=== PATIENT | female | born 1995 | race African-American/Black ===

== ENCOUNTER 2021-08-16 14:11 | Emergency (ER) | payer BC, MEDICAID, SELFPAY ==
--- NOTE | 2021-08-16 14:23 | ED.SKABFB ---
HPI - Skin/Abscess/Foreign Bdy General Chief complaint: Skin/Abscess/Foreign Body Stated complaint: Hand discoloration Time Seen by Provider: 08/16/21 14:23 Source: patient, RN notes reviewed and old records reviewed Mode of arrival: ambulatory Limitations: no limitations History of Present Illness HPI narrative: 25-year-old female presents to the [facility] with concerns of palms of bilateral hands that are orange for the last 1 to 2 weeks. Fingertips are not orange. No other body part is orange. Callahan was able to be partially removed with alcohol pads. No other symptoms. Full range of motion. Capillary refill under 2 seconds. complaint: rash Related Data Home Medications Medication Instructions Recorded Confirmed No Home Medications 08/16/21 08/16/21 Allergies Allergy/AdvReac Type Severity Reaction Status Date / Time No Known Allergies Allergy Unverified 05/27/17 17:02 Review of Systems Review of Systems: All systems reviewed & are unremarkable except as noted in HPI and below Constitutional: Constitutional: Reports no additional constitutional complaints, Denies chills, Denies fever(s), Denies headache(s) and Denies weakness Eyes: Eyes: Reports no additional eye complaints and Denies change in vision ENT: Reports system reviewed and no additional complaints, except as documented, Denies dysphagia, Denies dizziness, Denies headache(s), Denies nasal congestion and Denies sore throat Cardiovascular: Cardiovascular: Reports no additional cardiovascular complaints, Denies chest pain, Denies syncope and Denies dyspnea Respiratory: Respiratory: Reports no additional respiratory complaints, Denies chest congestion, Denies cough, Denies dyspnea and Denies wheezing Gastrointestinal: Gastrointestinal: Denies dysphagia Musculoskeletal: Musculoskeletal: Denies numbness Integumentary/Breasts: Skin/Breast: Reports as per HPI Comments: Callahan palms of her hands bilaterally Neurologic: Reports system reviewed and no additional complaints, except as documented, Denies dizziness, Denies syncope, Denies headache(s), Denies focal weakness, Denies numbness and Denies weakness Psychiatric: Psychiatric: Reports no additional psychiatric complaints Allergic/Immunologic: Allergic/Immunologic: Reports no additional allergic/immunologic complaints and Denies wheezing PMFSH Past Medical History Medical History (Updated 08/16/21 @ 16:01 by Jenna Robledo APRN) No significant medical problems Surgical History Surgical History (Updated 08/16/21 @ 16:01 by Jenna Robledo APRN) No pertinent past surgical history Comments At the time of my signature, I reviewed and agree with the nursing past medical, surgical, social, and family history. There is no relevant family history pertinent to the patient complaint. Exam Const: General: healthy appearing, no acute distress and alert Nutritional Appearance: well nourished Orientation/consciousness: patient oriented x3 Limitations: no limitations HENMT: Head: normal to inspection Ears: external ears normal Mouth: Yes Normal oral and palatal mucosa present Eyes: Conjunctivae: conjunctivae normal Pupils: Equal, round and reactive pupils present Neck: Neck: normal visual inspection, no lymphadenopathy and no meningeal signs Chest: Chest palpation & inspection: normal inspection of the chest Resp: Effort & Inspection: normal respiratory effort Auscultation: clear to auscultation bilaterally Cardio: Rate: regular rate Rhythm: regular rhythm : General: Yes no CVA tenderness Back/Spine/Pelvis: Back: no CVA tenderness Skin: General skin exam: normal color Rashes: rashes noted Other: Only discoloration noted just to the palms of the hands not the fingers. Neuro: General: patient oriented x3, moves all extremities, no meningeal signs and no focal motor deficits Cranial nerves: Yes Equal, round and reactive pupils present Speech: normal speech Gait exam (Neuro):
[2021-08-16 14:24] VITALS: BP 118/68; PULSE 75; RESP 20; TEMP 36.8; O2SAT 100
== END 2021-08-16 14:33 | disposition home or self-care (01) ==
PROVIDERS: Emergency Provider Nurse Practitioner
DX: Z71.1 Person with feared health complaint in whom no diagnosis is made (principal)
CPT/HCPCS: 99211; G0463

== ENCOUNTER 2022-04-29 07:41 | Inpatient (IN) | payer BC, MEDICAID, SELFPAY ==
[2022-04-29] VITALS (11 sets, daily range): BP systolic 96–128; BP diastolic 47–69; PULSE 90–141; RESP 18–22; TEMP 36.8–39.6; O2SAT 95–100
--- NOTE | ~2022-04-29 | XR_ITS ---
EXAMINATION: XR chest 1V portable DATE: 04/29/2022 08:08 INDICATION: Cough. Shortness of breath. TECHNIQUE: A single frontal view of the chest was obtained. COMPARISON: None. FINDINGS: The chest demonstrates clear lungs without pneumonia, pleural effusion, or pneumothorax. Th e heart size is normal. IMPRESSION: 1. No acute cardiopulmonary disease. Reviewed, dictated and finalized at location A. REMENT OFFICER
--- NOTE | 2022-04-29 08:04 | ED.GENADULT ---
HPI - General Adult General Chief complaint: Upper Respiratory Infection Stated complaint: SOB Source: RN notes reviewed History of Present Illness HPI narrative: Patient presents emergency room from home via EMS for cough. Patient states that symptoms began yesterday she states that she began to feel generally achy and has a cough is productive of clear sputum states is associated with rhinorrhea and a sore throat patient states that she does have a son at home who recently tested positive for influenza A. She states that she feels achy in all of her joints she states she did take ibuprofen this morning she denies any chest pain abdominal pain vomiting or diarrhea states she does have some nausea Related Data Home Medications Medication Instructions Recorded Confirmed No Home Medications 08/16/21 04/29/22 Allergies Allergy/AdvReac Type Severity Reaction Status Date / Time No Known Allergies Allergy Unverified 04/29/22 07:53 Review of Systems Review of Systems: Gen.: Denies fevers or chills ENT: Reports rhinorrhea and sore throat Respiratory: See HPI CV: Denies chest pain or palpitations GI: Denies abdominal pain emesis or diarrhea. Reports nausea Musculoskeletal: Denies back pain or muscle pain Neuro: Denies numbness, tingling, weakness or focal weakness Skin: Denies rash Except as documented, all other systems reviewed and negative PMFSH Past Medical History Medical History No significant medical problems Surgical History Surgical History (Updated 08/16/21 @ 16:01 by Jenna Robledo APRN) No pertinent past surgical history Social History Social History (Updated 04/29/22 @ 08:05 by Jason Edward DO) Smoking status: Never smoker Alcohol intake: never Substance use: never Has the Lack of Transportation Kept You From Medical Appointments or From Getting Medications?: No Within the Past 12 Months, Were You Worried Whether Your Food Would Run Out Before You Got Money to Buy More?: Never True What is Your Housing Situation Today?: I Have Housing Are You Worried That in the Next 2 Months, You May Not Have Your Own Housing to Live In?: No Do You Have Trouble Paying Your Heating Or Electricity Bill?: No Do You Have Trouble Paying For Medicines?: No Are You Currently Unemployed and Looking for Work?: No Highest Level of Education Completed: High School Diploma/GED Do You Have Trouble With Childcare or the Care of a Family Member?: No Spiritual care concerns: No Exam Narrative: APPEARANCE: No acute distress, nontoxic, resting in bed EYES: EOMI HEENT: Normocephalic, atraumatic, bilateral turbinates boggy erythema the posterior pharynx and tonsils no exudate uvula midline RESPIRATORY: No respiratory distress Clear to auscultation bilaterally with no rhonchi wheezing or rales. CARDIOVASCULAR: Tachycardic and regular without murmurs rubs or gallops. ABDOMINAL: Soft, nontender, nondistended, no rebound or guarding MUSCULOSKELETAl: Moves all extremities. No clubbing, cyanosis or edema. NEURO: Awake and alert. Following commands, speech normal, no focal deficits SKIN:: Warm, dry. No rashes lesions or abrasions PSYCHIATRIC: Normal affect/mood, Course Course Emergency Course: Patient remained stable in the ER but continues to have elevated heart rate. 2 L of fluid given Discussed Dr. Siu presentation work-up request 3 L fluid be given reevaluate Patient continues to have sinus tachycardia following third liter of fluid. Reviewed old records patient had a heart rate of 75 the last ED presentation will admit at this time Discussed with HUMBERTO Medrano to Dr. Nogueira agrees with admission request TSH be added Discussed with patient and family results of workup and diagnosis. Discussed need for admission. Patient and family understand and agree to current treatment plan Vital Signs Vital signs: Vital Signs Temperature 100.1
[2022-04-29] MEDS: SODIUM CHLORIDE 0.9% IV 1,000 ML 999 ML IV CONT ×3 (08:09→11:34)
[2022-04-29] MEDS: FAMOTIDINE 20 MG/2 ML VIAL IV PUSH (08:10)
[2022-04-29 08:46] LABS: Influenza A QL RT-PCR Positive (Negative); Influenza B QL RT-PCR Negative (Negative); SARS-CoV-2 RNA PCR Negative
[2022-04-29 08:57] LABS: Basophils Percent Auto 0.3 % (0.2-1.2); Eosinophils Percent Auto 0.4 % (0-4.4); Hematocrit 32.6 % (37.0-47.0); Hemoglobin 10.7 g/dL (12.0-15.0); Immature Granulocyte Absolute 0.07 K/mm3 (0.00-0.031); Immature Granulocyte Percent A 0.8 % (0-0.5); Lymphocytes Absolute Auto 0.33 K/mm3 (0.9-3.2); Lymphocytes Percent Auto 3.7 % (18.3-44.2); Mean Corpuscular HGB Conc 32.8 g/dl (32-36); Mean Corpuscular Hemoglobin 29.8 pg (26-34); Mean Corpuscular Volume 90.8 fl (80-100); Mean Platelet Volume 10.4 fl (7.4-10.4); Monocytes Absolute Auto 0.8 K/mm3 (0.1-0.6); Monocytes Percent Auto 8.7 % (2.6-8.5); Neutrophils Absolute Auto 7.8 K/mm3 (1.3-6.7); Neutrophils Percent Auto 86.1 % (45.5-73.1); Platelet Count Result 288 k/mm3 (150-375); Red Blood Count 3.59 M/mm3 (4.2-5.4); Red Cell Distribution Width 13.1 % (11.5-14.5)
[2022-04-29 09:09] LABS: Alanine Aminotransferase 14 U/L (6-35); Albumin Level 3.6 g/dL (3.5-5.1); Alkaline Phosphatase 59 U/L (38-126); Anion Gap 8 mmol/L (8-16); Aspartate Amino Transferase 18 U/L (14-36); Bilirubin,Total 0.4 mg/dL (0.2-1.3); Blood Urea Nitrogen 12 mg/dL (7-17); Carbon Dioxide 18 mmol/L (22-30); Chloride 110 mmol/L (98-107); Estimated Glomerular Filt Rate > 60; Glucose 102 mg/dL (65-110); Potassium 3.7 mmol/L (3.4-5.0); Sodium 136 mmol/L (137-145)
--- NOTE | 2022-04-29 10:00 | ECG_ITS ---
Measurements Intervals [place] Rate: 125 P: 57 CA: 170 QRS: 61 QRSD: 78 T: 47 QT: 336 QTc: 484 Interpretive Statements SINUS TACHYCARDIA EARLY PRECORDIAL R/S TRANSITION BORDERLINE ST-T WAVE ABNORMALITY- ANT/INF LEADS ABNORMAL ECG NO PREVIOUS ECG AVAILABLE FOR COMPARISON Electronically Signed On 04-29-2022 10:30:16 FISH HATCHERY ASSISTANT by Vamshi Parsons D.O.
[2022-04-29 11:09] LABS: D Dimer 0.35 ug/mL (<0.48)
[2022-04-29] MEDS: OSELTAMIVIR PHOSPHATE 75 MG CAPSULE PO (13:18)
[2022-04-29] MEDS: IBUPROFEN 600 MG TABLET PO (13:18)
[2022-04-29] MEDS: SODIUM CHLORIDE 0.9% IV 1,000 ML 80 ML IV CONT (14:23)
[2022-04-29 14:45] LABS: Lactic Acid Reflex 1.4 mmol/L (0.7-2.0)
[2022-04-29 14:53] LABS: Anion Gap 10 mmol/L (8-16); Blood Urea Nitrogen 9 mg/dL (7-17); Calcium 7.3 mg/dL (8.4-10.2); Carbon Dioxide 18 mmol/L (22-30); Chloride 112 mmol/L (98-107); Estimated Glomerular Filt Rate > 60; Glucose 97 mg/dL (65-110); Potassium 3.6 mmol/L (3.4-5.0); Sodium 140 mmol/L (137-145)
[2022-04-29 15:57] LABS: Thyroid Stimulating Hormone 0.352 uIU/mL (0.465-4.680)
--- NOTE | 2022-04-29 19:30 | PM.IMHP ---
H&P: HPI History of Present Illness Date/Time: 04/29/22 19:30 Chief Complaint: Cough and shortness of breath. Narrative: This is a 26-year-old female with history of anxiety who presented to the ED from home for evaluation of cough and shortness of breath. Her son was recently diagnosed with the flu and she started to have similar symptoms yesterday to include body aches, cough productive of clear sputum, rhinorrhea, and sore throat. This morning she was feeling a bit short of breath and she came in for evaluation. Her chest x-ray was clear and labs did not show any significant abnormalities aside from mild hyponatremia and a mild normocytic anemia. D-dimer was ordered due to persistent sinus tachycardia in the 120s to 140s and that was negative. She was aggressively hydrated and she was given Tylenol for her temperature of nearly 102?, and despite these measures she remains tachycardic and she is being admitted overnight for evaluation. Currently she is resting comfortably and she has no specific complaints. 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 She specifically denies syncope, near syncope, chest pain, pleuritic pain, palpitations, nausea, vomiting, and sweats. She has no history of thyroid disease or venous thromboembolism. She denies significant caffeine use. No illicit substance use. Review of Systems Review of Systems: Twelve systems were reviewed and are negative except for as per HPI. [facility] Past Medical History Medical History No significant medical problems Surgical History Surgical History No pertinent past surgical history Family History Family History (Updated 04/29/22 @ 20:44 by Marcela Hernandez PA-C) Other Family history non-contributory Social History Social History (Updated 04/29/22 @ 20:45 by Marcela Hernandez PA-C) Social History: Surrogate medical decision maker: Rama Richter, mother. Code status: Full code. Smoking status: Never smoker Alcohol intake: never Substance use: never Has the Lack of Transportation Kept You From Medical Appointments or From Getting Medications?: No Within the Past 12 Months, Were You Worried Whether Your Food Would Run Out Before You Got Money to Buy More?: Never True What is Your Housing Situation Today?: I Have Housing Are You Worried That in the Next 2 Months, You May Not Have Your Own Housing to Live In?: No Do You Have Trouble Paying Your Heating Or Electricity Bill?: No Do You Have Trouble Paying For Medicines?: No Are You Currently Unemployed and Looking for Work?: No Highest Level of Education Completed: High School Diploma/GED Do You Have Trouble With Childcare or the Care of a Family Member?: No Spiritual care concerns: No Meds Home Medications and Allergies Home Medications Medication Instructions Recorded Confirmed Type No Home Medications 08/16/21 04/29/22 History Allergies Allergy/AdvReac Type Severity Reaction Status Date / Time No Known Allergies Allergy Unverified 04/29/22 07:53 Vital Signs Vital Signs - 24 hr 04/29/22 07:41 04/29/22 07:51 04/29/22 09:18 Temperature 100.1 F H Pulse Rate 141 H 122 H Respiratory Rate 22 H 18 Blood Pressure 107/61 111/48 L Pulse Oximetry 100 100 99 Oxygen Delivery Room Air Room Air 04/29/22 09:51 04/29/22 10:18 04/29/22 10:52 Temperature 98.2 F Pulse Rate 129 H 124 H Respiratory Rate 18 18 Blood Pressure 96/61 L 104/57 L Pulse Oximetry 100 100 Oxygen Delivery Exam Narrative: General: Mildly ill-appearing female lying on her left side in bed in no distress. Weight: 60.1 kilograms. BMI: 32.5. HEENT: PERRL, EOMI. Sclera anicteric. Oral mucosa moist. Tacky mucous membranes. Oropharynx mildl
[2022-04-29] MEDS: ACETAMINOPHEN 325 MG TABLET 650 MG PO (21:02)
[2022-04-29] MEDS: ONDANSETRON INJ 4 MG/2 ML VIAL IV PUSH (21:08)
[2022-04-30] VITALS (15 sets, daily range): BP systolic 110–137; BP diastolic 66–76; PULSE 96–127; RESP 18–20; TEMP 36.9–39.6; O2SAT 96–100
[2022-04-30] MEDS: BENZOCAINE/MENTHOL (*BKC) 18 EA LOZENGE 1 LOZENGE PO ×2 (04:51→09:21)
[2022-04-30 06:36] LABS: Basophils Percent Auto 0.1 % (0.2-1.2); Hemoglobin 10.4 g/dL (12.0-15.0); Immature Granulocyte Absolute 0.11 K/mm3 (0.00-0.031); Immature Granulocyte Percent A 0.8 % (0-0.5); Lymphocytes Absolute Auto 0.87 K/mm3 (0.9-3.2); Lymphocytes Percent Auto 6.2 % (18.3-44.2); Mean Corpuscular HGB Conc 32.5 g/dl (32-36); Mean Corpuscular Hemoglobin 29.5 pg (26-34); Mean Corpuscular Volume 90.9 fl (80-100); Mean Platelet Volume 10.7 fl (7.4-10.4); Monocytes Absolute Auto 1.1 K/mm3 (0.1-0.6); Monocytes Percent Auto 7.6 % (2.6-8.5); Neutrophils Absolute Auto 12.1 K/mm3 (1.3-6.7); Neutrophils Percent Auto 85.3 % (45.5-73.1); Platelet Count Result 235 k/mm3 (150-375); Red Blood Count 3.52 M/mm3 (4.2-5.4); Red Cell Distribution Width 13.2 % (11.5-14.5); White Blood Count 14.1 K/mm3 (4.5-10.0)
[2022-04-30 06:46] LABS: Alanine Aminotransferase 16 U/L (6-35); Albumin Level 3.5 g/dL (3.5-5.1); Alkaline Phosphatase 58 U/L (38-126); Anion Gap 11 mmol/L (8-16); Aspartate Amino Transferase 29 U/L (14-36); Bilirubin,Total 0.3 mg/dL (0.2-1.3); Blood Urea Nitrogen 6 mg/dL (7-17); Calcium 7.9 mg/dL (8.4-10.2); Carbon Dioxide 20 mmol/L (22-30); Chloride 106 mmol/L (98-107); Estimated Glomerular Filt Rate > 60; Glucose 101 mg/dL (65-110); Magnesium 1.6 mg/dL (1.6-2.3); Potassium 3.3 mmol/L (3.4-5.0); Sodium 137 mmol/L (137-145)
[2022-04-30 07:20] LABS: Free T4 Free Thyroxine 0.98 ng/mL (0.78-2.19)
--- NOTE | 2022-04-30 13:09 | PM.IMPN ---
Progress Note: A&P Assessment and Plan (1) Influenza A: Code(s): J10.1 - Influenza due to other identified influenza virus with other respiratory manifestations Status: Acute Assessment and Plan: Influenza A positive with fever, tachycardia, nausea, weakness, sore throat, PRIETO and anorexia. Place in droplet isolation. Start tamiflu 75 mg PO BID x 5 days CXR without infiltrates or consolidation. No antibiotics started. WBC 14 but no sputum changes or worsening respiratory complaints. Continue supportive care. (2) Sinus tachycardia: Code(s): R00.0 - Tachycardia, unspecified Status: Acute Assessment and Plan: Resolved. Secondary to dehydration and fever. (3) Normocytic anemia: Code(s): D64.9 - Anemia, unspecified Status: Acute Assessment and Plan: H/H 10.. No active bleeding noted. Anemia is likely chronic as she is young menstruating female. Will test FOBT and draw anemia labs. (4) Abnormal TSH: Code(s): R79.89 - Other specified abnormal findings of blood chemistry Status: Acute Assessment and Plan: TSH low with normal free T4, likely secondary to acute illness. Monitor for now. Time Spent With Patient Time: Code status: Full code Disposition: home in am if improved. Time with patient: 15 - 25 minutes Subjective Date/time seen: 04/30/22 13:09 She is feeling weak and has nausea every time she eats. Temp max 103.1F today. She feels like her breathing is somewhat improved. No abd pain, vomiting or diarrhea. Review of Systems Review of Systems: All systems reviewed & are unremarkable except as noted in HPI and below Exam Narrative: General: Mildly ill-appearing female lying on her left side in bed in no distress. HEENT: Normocephalic, PERRL, EOMI. Sclera anicteric. Oral mucosa moist. Tacky mucous membranes. Oropharynx mildly erythematous. Neck: Supple. No lymphadenopathy. Respiratory: Lungs are clear to auscultation bilaterally, poor inspiratory effort. Cardiovascular: normal S1-S2 regular rate and rhythm. No murmurs, gallops or rubs. Gastrointestinal: Abdomen is soft, nontender, and nondistended with positive bowel sounds. Skin: Warm and dry. No rash or lesions on limited exam. Extremities: No cyanosis, clubbing, or edema. Radial and pedal pulses intact. Generalized weakness all extremities. Neurological: Alert and oriented x4. Speech clear but slow and very soft spoken. Cranial nerves 2-12 are grossly intact. No gross focal deficits to casual conversation. Psychiatric: Pleasant and cooperative with normal mood and affect. Objective Data Vital Signs Vital Signs: Vital Signs - 24 hr 04/29/22 13:24 04/29/22 13:30 04/29/22 16:00 Temperature 102.1 F H Pulse Rate 133 H 90 90 Respiratory Rate 20 18 Blood Pressure 102/47 L 111/49 L Pulse Oximetry 95 98 Oxygen Delivery 04/29/22 22:00 04/29/22 20:00 04/29/22 20:00 Temperature 103.2 F H Pulse Rate 130 H 132 H Respiratory Rate 20 Blood Pressure 128/69 Pulse Oximetry 100 Oxygen Delivery Room Air 04/30/22 00:00 04/30/22 04:42 04/30/22 05:52 Temperature 102.8 F H 103 F H Pulse Rate 122 H 112 H Respiratory Rate 18 Blood Pressure 137/70 Pulse Oximetry 100 Oxygen Delivery 04/30/22 04:00 04/30/22 08:00 Temperature Pulse Rate 127 H 100 Respiratory Rate Blood Pressure Pulse Oximetry Oxygen Delivery Intake/Output Intake/Output: Intake & Output 04/28/22 04/28/22 04/29/22 04/30/22 00:59 23:59 23:59 23:59 Intake Total 3340 1370 Balance 3340 1370 Meds/Results Medications: Active Medications Generic Name Dose Route Start Last Admin Trade Name Freq PRN Reason Stop Dose Admin Acetaminophen 650 mg 04/29/22 20:51 04/29/22 21:02 Acetaminophen 325 Mg Tablet PO 650 mg Q6H PRN Administration Mild Pain (1-3) or Fever Benzocaine 1 lozenge 04/29/22 20:51 04/30/22 09:21
[2022-04-30] MEDS: OSELTAMIVIR PHOSPHATE 75 MG CAPSULE PO ×2 (13:14→20:38)
[2022-04-30 15:53] LABS: Glucose Point of Care 84 mg/dl (65-105)
[2022-04-30] MEDS: ACETAMINOPHEN 325 MG TABLET 650 MG PO ×2 (15:55→23:53)
[2022-05-01] VITALS (13 sets, daily range): BP systolic 102–112; BP diastolic 62–70; PULSE 103–120; RESP 16–20; TEMP 36.7–38.6; O2SAT 96–99
[2022-05-01 06:29] LABS: Basophils Percent Auto 0.2 % (0.2-1.2); Hematocrit 35.6 % (37.0-47.0); Hemoglobin 11.5 g/dL (12.0-15.0); Immature Granulocyte Absolute 0.05 K/mm3 (0.00-0.031); Immature Granulocyte Percent A 0.5 % (0-0.5); Lymphocytes Absolute Auto 1.41 K/mm3 (0.9-3.2); Mean Corpuscular HGB Conc 32.3 g/dl (32-36); Mean Corpuscular Hemoglobin 29.2 pg (26-34); Mean Corpuscular Volume 90.4 fl (80-100); Mean Platelet Volume 10.9 fl (7.4-10.4); Monocytes Absolute Auto 0.9 K/mm3 (0.1-0.6); Monocytes Percent Auto 8.1 % (2.6-8.5); Neutrophils Absolute Auto 8.5 K/mm3 (1.3-6.7); Neutrophils Percent Auto 78.2 % (45.5-73.1); Platelet Count Result 257 k/mm3 (150-375); Red Blood Count 3.94 M/mm3 (4.2-5.4); Red Cell Distribution Width 13.2 % (11.5-14.5); White Blood Count 10.8 K/mm3 (4.5-10.0)
[2022-05-01 06:37] LABS: Anion Gap 10 mmol/L (8-16); Blood Urea Nitrogen 10 mg/dL (7-17); Calcium 8.2 mg/dL (8.4-10.2); Carbon Dioxide 20 mmol/L (22-30); Chloride 107 mmol/L (98-107); Estimated Glomerular Filt Rate > 60; Glucose 92 mg/dL (65-110); Magnesium 1.8 mg/dL (1.6-2.3); Potassium 3.7 mmol/L (3.4-5.0); Sodium 137 mmol/L (137-145)
[2022-05-01 06:40] LABS: Iron 16 ug/dL (37-170)
[2022-05-01 06:50] LABS: Percent Iron Saturation 5 % (20-50)
[2022-05-01 07:40] LABS: Folic Acid 13.7 ng/mL (2.76->20)
[2022-05-01] MEDS: OSELTAMIVIR PHOSPHATE 75 MG CAPSULE PO ×2 (08:43→20:13)
--- NOTE | 2022-05-01 14:54 | PM.IMPN ---
Progress Note: A&P Assessment and Plan (1) Influenza A: Code(s): J10.1 - Influenza due to other identified influenza virus with other respiratory manifestations Status: Acute Assessment and Plan: Influenza A positive with fever (T-max 103.3?), tachycardia, nausea, weakness, sore throat, PRIETO and decreased appetite. Continue droplet isolation precautions Continue Tamiflu 75 mg PO BID x 5 days. Started on 04/30/22 CXR without infiltrates or consolidation. No indication for antibiotics at this time Supportive care. (2) Sinus tachycardia: Code(s): R00.0 - Tachycardia, unspecified Status: Acute Assessment and Plan: Improved. Heart rate initially in 130s. Has improved to 100s-110s today. Likely due to acute viral illness/fever. Continue to monitor. (3) Normocytic anemia: Code(s): D64.9 - Anemia, unspecified Status: Acute Assessment and Plan: H&H remaining stable. No active bleeding noted. Anemia is likely chronic as she is young menstruating female. Iron stores are deficient. Will begin PO iron supplementation. Stool occult blood test pending, awaiting collection. (4) Abnormal TSH: Code(s): R79.89 - Other specified abnormal findings of blood chemistry Status: Acute Assessment and Plan: TSH low with normal free T4, likely secondary to acute illness. Will need repeat TSH with reflex in 4-6 weeks as an outpatient. Subjective Date/time seen: 05/01/22 14:54 Interval history: Date of service: 05/01/2022 Josette Torres is a healthy 26-year-old female who is seen in follow-up for influenza. Patient states that she lost her voice and does not provide any verbal history. She does shake her head yes and no. She is able to type some responses on her cellphone. She complains of cough productive of yellow/green mucus that has been unchanged throughout admission. She denies shortness of breath. She endorses fevers, chills, body aches, nausea, and decreased appetite. She has a very mild sore throat but has been able to drink liquids without difficulty. She has a mild headache that comes and goes. She denies chest pain. Does endorse racing heart. She has been able to ambulate to the restroom without difficulty. She did request a walker to use in her room because she states she is feeling weak, but has been able to ambulate independently without difficulty. Review of Systems Review of Systems: All systems reviewed & are unremarkable except as noted in HPI and below Exam Narrative: General: well-nourished, well-appearing 26-year-old female, semi recumbent in bed, comfortable, NARD Neuro: awake, alert, responds to questions appropriately although does not provide any verbal responses, no focal neuro deficits noted HEENMT: normocephalic, atraumatic, EOMI, sclerae anicteric Respiratory: clear to auscultation bilaterally, nonlabored breathing Cardio: Tachycardic, regular rhythm with S1-S2 Abdomen: nondistended, normoactive bowel sounds, soft, nontender to palpation Extremities: no edema, erythema, or tenderness to palpation, DP pulses 2+ bilaterally Skin: no rashes or lesions, warm and dry Psych: appropriate mood and affect, judgment and insight intact Objective Data Vital Signs Vital Signs: Vital Signs - 24 hr 04/30/22 15:30 04/30/22 15:52 04/30/22 15:55 Temperature 99.9 F H 103.3 F H 103.1 F H Pulse Rate Respiratory Rate Blood Pressure Pulse Oximetry Oxygen Delivery 04/30/22 16:00 04/30/22 16:55 04/30/22 20:00 Temperature 100.9 F H Pulse Rate 110 H Respiratory Rate Blood Pressure Pulse Oximetry Oxygen Delivery Room Air 04/30/22 22:00 04/30/22 23:53 05/01/22 00:53 Temperature 100.4 F H 100.4 F H 99.8 F H Pulse Rate 117 H Respiratory Rate 18 Blood Pressure 110/76 Pulse Oximetry 96 Oxygen Delivery 04/30/22 20:00 05/01/22 00:00 05/01/22 04:00 Temperature Pulse Rate
[2022-05-01] MEDS: ACETAMINOPHEN 325 MG TABLET 650 MG PO (19:37)
[2022-05-01] MEDS: guaiFENesin 12 HR 600 MG TABCR PO (20:13)
[2022-05-02] VITALS (8 sets, daily range): BP systolic 92–107; BP diastolic 45–64; PULSE 99–130; RESP 16–20; TEMP 36.9–37.5; O2SAT 96–98
[2022-05-02 06:48] LABS: Hematocrit 35.6 % (37.0-47.0); Hemoglobin 11.5 g/dL (12.0-15.0); Mean Corpuscular HGB Conc 32.3 g/dl (32-36); Mean Corpuscular Volume 89.9 fl (80-100); Mean Platelet Volume 11.2 fl (7.4-10.4); Platelet Count Result 292 k/mm3 (150-375); Red Blood Count 3.96 M/mm3 (4.2-5.4); Red Cell Distribution Width 13.1 % (11.5-14.5); White Blood Count 10.5 K/mm3 (4.5-10.0)
[2022-05-02 07:08] LABS: Anion Gap 14 mmol/L (8-16); Blood Urea Nitrogen 11 mg/dL (7-17); Calcium 8.1 mg/dL (8.4-10.2); Carbon Dioxide 22 mmol/L (22-30); Chloride 101 mmol/L (98-107); Estimated Glomerular Filt Rate > 60; Glucose 101 mg/dL (65-110); Potassium 3.5 mmol/L (3.4-5.0); Sodium 137 mmol/L (137-145)
[2022-05-02] MEDS: OSELTAMIVIR PHOSPHATE 75 MG CAPSULE PO (08:28)
[2022-05-02] MEDS: guaiFENesin 12 HR 600 MG TABCR PO (08:28)
--- NOTE | 2022-05-02 15:26 | PM.DS ---
DS: Admitting Diagnosis Discharge Date 05/02/2022 Admitting Diagnosis influenza DS: Discharge Diagnosis Discharge Diagnosis (1) Influenza A: Code(s): J10.1 - Influenza due to other identified influenza virus with other respiratory manifestations Status: Acute Assessment and Plan: Influenza A positive with fever (T-max 103.3?), tachycardia, nausea, weakness, sore throat, PRIETO and decreased appetite. Received tamiflu 75 mg PO BID and will continue for 5 days total. Supportive care provided. Remained afebrile 24 hours prior to discharge. Overall symptomatic improvement. (2) Sinus tachycardia: Code(s): R00.0 - Tachycardia, unspecified Status: Acute Assessment and Plan: Improved. Heart rate initially in 130s-140s. [place] to be secondary to acute viral illness, fever, dehydration. Heart rate improved with appropriate hydration and improvement in acute illness. (3) Normocytic anemia: Code(s): D64.9 - Anemia, unspecified Status: Acute Assessment and Plan: H&H remained stable. No active bleeding noted. Anemia is likely chronic as she is young menstruating female. Iron stores are deficient. Started on PO iron supplementation. (4) Abnormal TSH: Code(s): R79.89 - Other specified abnormal findings of blood chemistry Status: Acute Assessment and Plan: TSH low with normal free T4, likely secondary to acute illness. Will need repeat TSH with reflex in 4-6 weeks as an outpatient. DS: Summary Hospital Course Hospital Course: date of admission: 04/29/2022 date of discharge: 05/02/2022 Josette Torres is a healthy 26-year-old female who? presented to the emergency department on 04/29/2022 with complaints of persistent cough associated with body aches, rhinorrhea, sore throat and exposure to her son who had recently tested positive for influenza A. On presentation to the ED, she was febrile 100.1? with heart rate 141 and respiratory rate 22, laboratory workup was unremarkable, patient test positive for influenza A, CXR showed no acute cardiopulmonary findings. Patient remained tachycardic despite 3 L fluid bolus and was admitted to the hospitalist service in this setting. She was started on Tamiflu and supportive care was provided. She did have overall symptomatic improvement. Her tachycardia was markedly improved in the 90s-110s. Sinus tachycardia was felt to be secondary to acute viral illness, fever, dehydration. D-dimer was within normal limits and Wells score for PE was 1.5, indicating low risk. TSH was slightly abnormal, however T4 was within normal limits and this was not felt to contribute to tachycardia. She will need to follow-up with her PCP for repeat TSH in 4-6 weeks. Patient was tolerating adequate p.o. intake and felt comfortable with plans to return home as she had symptomatic improvement. she will continue p.o. Tamiflu to complete a total of 5 days of therapy. Given patient's overall improvement, she was determined to no longer require inpatient care and was discharged in hemodynamically stable condition on 05/02/2022. Discussed worrisome signs and symptoms for which to return and she was educated on her medications. Time Spent with Patient Time attestation: Total time spent providing and/or coordinating discharge services: 38 minutes Time spent: Greater than 30 minutes Exam Narrative: General: well-nourished, well-appearing 26-year-old female, semi recumbent in bed, comfortable, NARD Neuro: awake, alert, responds to questions appropriately although does not provide any verbal responses, no focal neuro deficits noted HEENMT: normocephalic, atraumatic, EOMI, sclerae anicteric Respiratory: clear to auscultation bilaterally, nonlabored breathing Cardio: Tachycardic, regular rhythm with S1-S2 Abdomen: nondistended, normoactive bowel sounds, soft, nontender to palpation Extremities: no edema, erythema, or tenderness to palpation, DP
== END 2022-05-02 18:00 | disposition home or self-care (01) | DRG 194 ==
LOC: ANHED 08:46 → ANH3MEDSUR 13:34
PROVIDERS: Nurse Practitioner Family; Physician Assistant; Admitting Provider Internal Medicine; Emergency Provider Emergency Medicine; Visit Provider Family Medicine
DX: J10.1 Influenza due to other identified influenza virus with other respiratory manifestations (principal); E87.1 Hypo-osmolality and hyponatremia; Z20.822 Contact with and (suspected) exposure to COVID-19; D64.9 Anemia, unspecified; R00.0 Tachycardia, unspecified; E86.0 Dehydration
CPT/HCPCS: 36415; 71045; 80048; 80053; 82607; 82746; 82948; 83540; 83550; 83605; 83735; 84439; 84443; 85025; 85027; 85380; 87040; 87636; 93005; 94667; 96361; 96365; 96366; 96375; 99285; A9270; G0378; J0131; J2405; J7030

== ENCOUNTER 2022-11-12 00:07 | Observation (INO) | payer BC, MEDICAID, SELFPAY ==
--- NOTE | 2022-11-12 01:09 | OBADM ---
This patient, Josette Torres, admitted to the OB room [facility] for observation. Patient/family oriented to hospital policies and general routines including ID bracelet, bed and alarms, visiting hours, pain management, procedures, bathroom and other care routines, personal items, smoking policy, room service/diet, and visiting hours. Patient/Family are encouraged to report perceived risks to care and to ask questions if they do not understand what they are told or what they should do.
--- NOTE | 2022-11-12 01:10 | PC.NURSE ---
asked pt if she would like any medication for nausea, pt laughed and said she is not nauseous she just needs to poop. pt denies any headache, dizziness, nausea, vaginal bleeding, states she has positive movement, and has no complaints or concerns right now. pt instructed to make a follow up apt with Dr. Matthews for care.
--- NOTE | 2022-11-12 01:13 | PC.NURSE ---
FHT 145
--- NOTE | 2022-11-12 01:14 | PC.NURSE ---
0100: Dr Matthews notified of pt status, instructed to send pt home.
--- NOTE | 2022-12-01 18:40 | PM.OBTRLD ---
OB - Triage/Final Diagnosis Visit Information Comments/Additional reasons for admission: I have assessed the risk for this patient, Josette Torres, and determined that she would benefit from observation care. Final Diagnosis (1) Nausea: Code(s): R11.0 - Nausea Status: Acute
== END 2022-11-12 01:28 | disposition home or self-care (01) ==
PROVIDERS: Admitting Provider Obstetrics & Gynecology; Visit Provider Obstetrics & Gynecology
DX: O26.899 Other specified pregnancy related conditions, unspecified trimester (principal); R11.0 Nausea; Z3A.00 Weeks of gestation of pregnancy not specified
CPT/HCPCS: G0378; G0379